=== PATIENT | female | born 1970 | race Caucasian/White ===

== ENCOUNTER 2020-08-16 10:09 | Outpatient (CLI) | payer OTHER, SELFPAY ==
--- NOTE | ~2020-08-16 | MM_ITS ---
EXAMINATION: MM screening anil BI w sofia HISTORY: Screening TECHNIQUE: Craniocaudal and mediolateral oblique 3-D tomosynthesis images were obtained and synthetic 2-D images were generated. CAD analysis was submitted and interpreted. COMPARISON: 03/09/2013 BREAST PARENCHYMAL COMPOSITION: There are scattered areas of fibroglandular density. FINDINGS: There is no evidence of suspicious mass, calcification, or architectural distortion to sugg est malignancy in either breast. There has been no suspicious interval change. IMPRESSION: 1. No mammographic evidence of malignancy. 2. Recommend routine screening mammography in one year. BI-RADS Category 1: Negative Reviewed, dictated and finalized at location A.
== END 2020-08-16 10:10 | disposition home or self-care (01) ==
LOC: ANHIMG 10:15
PROVIDERS: PCP Family Medicine Adolescent Medicine; Visit Provider Advanced Practice Midwife
DX: Z12.31 Encounter for screening mammogram for malignant neoplasm of breast (principal)
CPT/HCPCS: 77063; 77067

== ENCOUNTER 2022-03-03 11:21 | Emergency (ER) | payer OTHER, SELFPAY ==
[2022-03-03 11:28] VITALS: BP 152/72; PULSE 82; RESP 18; TEMP 36.6; O2SAT 100
--- NOTE | 2022-03-03 11:31 | ED.WOUNDLAC ---
HPI - Wound/Laceration General Chief Complaint: Wound/Laceration Stated Complaint: Structures Removal Time Seen by Provider: 03/03/22 11:31 Source: patient, RN notes reviewed and old records reviewed Mode of arrival: ambulatory Limitations: no limitations History of Present Illness HPI narrative: 51-year-old female presents to the [facility] for suture removal. Patient brought discharge papers from [facility] ER. Patient reports she had a syncopal episode, 8 sutures placed. 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, reports she was not able to get in for several weeks Related Data Home Medications Medication Instructions Recorded Confirmed No Home Medications 03/03/22 03/03/22 Allergies Allergy/AdvReac Type Severity Reaction Status Date / Time No Known Allergies Allergy Unknown Verified 03/03/22 11:25 Review of Systems Review of Systems: All systems reviewed & are unremarkable except as noted in HPI and below Constitutional: Constitutional: Reports no additional constitutional complaints Eyes: Eyes: Reports no additional eye complaints ENT: Reports system reviewed and no additional complaints, except as documented Cardiovascular: Cardiovascular: Reports no additional cardiovascular complaints, Denies chest pain and Denies dyspnea Respiratory: Respiratory: Reports no additional respiratory complaints, Denies chest congestion, Denies cough and Denies dyspnea Gastrointestinal: Gastrointestinal: Reports no additional gastrointestinal complaints, Denies abdominal pain, Denies nausea and Denies vomiting Musculoskeletal: Musculoskeletal: Reports no additional musculoskeletal complaints Integumentary/Breasts: Skin/Breast: Reports as per HPI Neurologic: Reports system reviewed and no additional complaints, except as documented Psychiatric: Psychiatric: Reports no additional psychiatric complaints Allergic/Immunologic: Allergic/Immunologic: Reports no additional allergic/immunologic complaints [facility] Family History Family History Father Family history of chronic obstructive pulmonary disease Malignant neoplasm of prostate Other Diabetes mellitus Social History Social History Smoking status: Never smoker Alcohol intake: current Comments At the time of my signature, I reviewed and agree with the nursing past medical, surgical, social, and family history. There is no relevant family history pertinent to the patient complaint. Exam Const: General: cooperative, healthy appearing, comfortable, no acute distress, well developed, alert and well nourished Nutritional Appearance: well nourished Orientation/consciousness: patient oriented x3 Limitations: no limitations HENMT: Head: normal to inspection Ears: hearing grossly normal bilaterally and external ears normal Face/Nose/Sinus: Normal external nose present, Normal nares present, Normal nasal mucous membranes and turbinates present and normal facial exam Face and sinus: normal facial exam Mouth: Yes Normal oral and palatal mucosa present, Yes lip normal and Yes moist mucous membranes Eyes: General: appearance normal, both eyes and all related structures Alignment and Position: alignment normal Periorbital: periorbital findings normal Conjunctivae: conjunctivae normal Pupils: Equal, round and reactive pupils present EOM: EOMs intact bilaterally Neck: Neck: normal visual inspection, full ROM, no lymphadenopathy and no meningeal signs Chest: Chest palpation & inspection: normal inspection of the chest Resp: Effort & Inspection: normal respiratory effort and able to speak in complete sentences Cardio: Rate: regular rate Rhythm: regular rhythm Back/Spine/Pelvis:
== END 2022-03-03 11:58 | disposition home or self-care (01) ==
PROVIDERS: Emergency Provider Nurse Practitioner; PCP Family Medicine Adolescent Medicine
DX: Z48.02 Encounter for removal of sutures (principal)
CPT/HCPCS: 99211; G0463

== ENCOUNTER 2022-06-16 10:53 | Day surgery (SDC) | payer OTHER, SELFPAY ==
[2022-05-20 08:03] VITALS: BMI 35.3
[2022-05-29 09:33] VITALS: BMI 35.4
--- NOTE | 2022-06-15 11:22 | PM.HPGS ---
History of Present Illness History of Present Illness Consent: Risks, benefits, and alternatives have been discussed and questions answered. Patient agrees to proceed with procedure. Chief complaint: Neoplasm Screening Narrative: Tricia Woo is a 51 year old female referred for colon cancer screening Review of Systems Review of Systems: All systems reviewed & are unremarkable except as noted in HPI and below PMFSH Family History Family History Father Family history of chronic obstructive pulmonary disease Malignant neoplasm of prostate Other Diabetes mellitus Social History Social History Smoking status: Never smoker Alcohol intake: never Substance use type: does not use Living arrangements: with family Spiritual care concerns: No Meds Home Medications and Allergies Home Medications Medication Instructions Recorded Confirmed Type multivitamin with minerals-folic 1 tablet PO DAILY 05/29/22 06/16/22 History acid 0.4 mg tablet Allergies Allergy/AdvReac Type Severity Reaction Status Date / Time No Known Allergies Allergy Unknown Verified 06/16/22 11:28 Exam Const: General: alert Orientation/consciousness: patient oriented x3 Resp: Auscultation: clear to auscultation bilaterally Cardio: Rhythm: regular rhythm GI: GI Palp: Yes Soft to palpation and No Tenderness to palpation present (GI) Neuro: General: patient oriented x3 Assessment and Plan Assessment and plan (1) Colon cancer screening: Code(s): Z12.11 - Encounter for screening for malignant neoplasm of colon Status: Acute Assessment and Plan: Colonoscopy with possible biopsy or polypectomy or cautery or injection of substances.
--- NOTE | 2022-06-16 11:15 | WPDANESEPPF ---
Anes - Initial Pre Proc Eval Procedure: Operation Date: 06/16/22 12:30 Proposed Procedures p Screening Colonoscopy - Javier Terrazas MD Date/Time: 06/16/22 11:15 Surgeon: Javier Terrazas MD Pre Op Diagnosis: Neoplasm Screening Patient Data Age: 51 Gender: F Height: 1.57 m Weight: 88 kg Allergies Allergy/AdvReac Type Severity Reaction Status Date / Time No Known Allergies Allergy Unknown Verified 03/03/22 11:25 Home Medications Medication Instructions Recorded Confirmed Type multivitamin with minerals-folic 1 tablet PO DAILY 05/29/22 05/29/22 History acid 0.4 mg tablet Patient hx anesthesia problems: none Family hx anesthesia problems: none Results Review: All pre-operative results and documents have been reviewed as part of the pre-operative evaluation. [facility] Family History Family History Father Family history of chronic obstructive pulmonary disease Malignant neoplasm of prostate Other Diabetes mellitus Social History Social History Smoking status: Never smoker Alcohol intake: never Substance use type: does not use Living arrangements: with family Spiritual care concerns: No Anes - Eval Final PreProcedure Day of Procedure 06/16/22 11:15 Patient weight: overweight Heart: regular rate and rhythm Lungs: clear to auscultation Airway: Mallampati scale class II Neurological: alert and oriented Last oral intake: >/= 8 hours ASA classification: II Emergent: no Anesthetic plan: proceed Anesthesia type and monitoring: general GIVS and standard monitoring Results Review: All pre-operative results and documents have been reviewed as part of the pre-operative evaluation. Informed Consent: The patient's anesthetic plan and its attendant risks and benefits were discussed with the patient/family/POA. Questions were solicited and answers provided to the satisfaction of the patient/family/POA.
[2022-06-16 11:29] VITALS: BP 139/83; PULSE 72; RESP 20; TEMP 36.9; O2SAT 100
[2022-06-16] MEDS: LACTATED RINGERS 1,000 ML 150 ML IV CONT (11:32)
[2022-06-16 12:27] VITALS: BP 102/66; PULSE 69; RESP 16; O2SAT 100
[2022-06-16 12:37] VITALS: BP 109/62; PULSE 62; RESP 16; O2SAT 100
[2022-06-16 12:47] VITALS: BP 108/63; PULSE 60; RESP 16; O2SAT 100
--- NOTE | 2022-06-16 12:47 | WPDANESPN ---
Anes - Prog Note Post-Op Date/Time: 06/16/22 12:47 Cardiovascular status: normal Respiratory status: normal Airway patency: baseline Mental status: baseline Post-Op hydration status: normal Vital Signs: Last Vital Signs Temp 36.9 C 06/16/22 11:29 Pulse 62 06/16/22 12:37 Resp 16 06/16/22 12:37 BP 109/62 06/16/22 12:37 Pulse Ox 100 06/16/22 12:37 O2 Del Method Room Air 06/16/22 12:37 Pain Score (VAS): 0 I/O: Intake & Output 06/15/22 06/16/22 06/16/22 23:59 07:59 15:59 Intake Total 500 Balance 500 Patient Feedback: Patient satisfied with anesthetic care.
== END 2022-06-16 12:57 | disposition home or self-care (01) ==
PROVIDERS: Visit Provider Internal Medicine Gastroenterology
PROC: 0DJD8ZZ Inspection of Lower Intestinal Tract, Via Natural or Artificial Opening Endoscopic (ICD-10-PCS; CPT 45378; principal; 2022-06-16 12:30)
DX: Z12.11 Encounter for screening for malignant neoplasm of colon (principal)
CPT/HCPCS: 45378

== ENCOUNTER 2023-12-10 09:00 | Outpatient (RCR) | payer OTHER, SELFPAY ==
--- NOTE | 2023-10-30 10:44 | OPREHPOC ---
Outpatient Therapy Plan of Care This is a Multidisciplinary Plan of Care that may contain components documented by all disciplines (PT, OT, and ST.) PT Problem 1 PT Problem #1 Knowledge Deficit PT Goal 1 Goal / Goal Update 1. Patient will perform independent HEP 2. Patient will verbalize urge suppression strategies Target Visit 3 PT Problem 2 PT Problem #2 Impaired Strength PT Goal 1 Goal / Goal Update 1. Improve pelvic floor strength to 4/5 to reduce incontinence 2. Improve pelvic floor endurance to 10 seconds to reduce incontinence 3. Improve core strengh to able to contract abdominals and hold with march Target Visit 5 PT Problem 3 PT Problem #3 Impaired Functional ADLs PT Goal 1 Goal / Goal Update 1. Patient will report no incontinence in the last month 2. Patient will void no more than 8 times a day and report no feelings of urgency Target Visit 5
--- NOTE | 2023-10-30 10:44 | PTOPEVAL1 ---
Assessment and note entered by Saniya Sanchez DPT Evaluation Information Assessment Status Evaluation ICD-10 Condition Codes (PT) Weakness R53.1,Stress incontinence N39.3 Subjective Information Pt reports urinary incontinence and has been using 1 light pad daily for at least several years but has recently had to increase to 2 pads a day. Also reports she has gained weight over the last few years and reports a drooping sensation. Voids less than 10 times a day and 0 at night. Incontinence 4 days out of 7. Will occur with a big cough or sneeze, sometimes laughing. Also will occur with jumping. Notices it after getting out of the shower. Can hold urge variable amounts of time depending on what she is doing, up to 30 minutes. Does report a sense of urgency. Denies pain with urination. BM 2-3 times a day, denies pain or incontinence. Denies history of pelvic pain. Pt has been 2 times, 2 vaginal deliveries and minor tearing and stitches with both. 2 LEEPs and colpo. Patient goal: strengthen pelvic floor and core Drinks approximately 20 ounces of coffee a day. No soda, some alcohol over the weekend. Water about 20 ounces a day and 16 ounces of tea a day. Will notice more urinary frequency after coffee and tea . Eats lunch and dinner, mid morning and afternoon snack. Does not cut out any major food groups. Return to MD is not scheduled currently. Reported Pain Level Pain Score 0: Self Report Assessment PT Clinical Summary The patient is presenting to skilled therapy with a several year history of worsening stress incontinence. She presents with decreased pelvic floor strength and endurance as well as decreased core strength which are contributing to her incontinence multiple times a week. She will benefit from therapy to address these impairments in order to eliminate incontinence and improve function. Plan of Care Interventions Manual Therapy,Neuro Re-education,Patient/ Caregiver Education,Therapeutic Activities, Therapeutic Exercise PT Services Indicated Yes Treatment Frequency and 1 time a week for 5 visits Duration These treatments will address the objective and functional deficits as d
--- NOTE | 2023-12-10 09:30 | OPREHPOC ---
Outpatient Therapy Plan of Care This is a Multidisciplinary Plan of Care that may contain components documented by all disciplines (PT, OT, and ST.) PT Problem 1 PT Problem #1 Knowledge Deficit PT Goal 1 Goal / Goal Update 1. Patient will perform independent HEP 2. Patient will verbalize urge suppression strategies Target Visit 3 Progress Met PT Problem 2 PT Problem #2 Impaired Strength PT Goal 1 Goal / Goal Update 1. Improve pelvic floor strength to 4/5 to reduce incontinence 2. Improve pelvic floor endurance to 10 seconds to reduce incontinence 3. Improve core strength to able to contract abdominals and hold with april update 12/09 1. 3/5 2. no change 3. can contract Target Visit 5 Progress Partially Met PT Problem 3 PT Problem #3 Impaired Functional ADLs PT Goal 1 Goal / Goal Update 1. Patient will report no incontinence in the last month 2. Patient will void no more than 8 times a day and report no feelings of urgency update 12/10/23 1. 3 days out of last 7 2. 7 voids a day, some urgency Target Visit 5 Progress Partially Met
--- NOTE | 2023-12-10 09:30 | PTOPDC ---
Assessment and note entered by Saniya Sanchez DPT Evaluation Information Assessment Status Discharge ICD-10 Condition Codes (PT) Weakness R53.1,Stress incontinence N39.3 Subjective Information Pt reports progress in therapy and is able to determine triggers regarding caffeine. Using 1 pad a day and voiding 7 times a day, 0 at night. Incontinence 3 times out of the last 7 days. Still getting incontinence while getting out of the shower but is a smaller volume. Can hold urge 30 minutes. Some drooping sensation still. Feels confident continuing HEP independently at this time. Reported Pain Level Pain Score 0: Self Report Assessment PT Clinical Summary The patient has made good progress in therapy. She reports decreased frequency and volume of incontinence. She also demonstrates improved core, hip, and pelvic floor strength. Due to her progress and patient request, plan for discharge this visit. She has been educated to continue independent HEP and follow up with MD and/or PT as needed. Plan of Care PT Services Indicated No
== END 2023-12-10 11:51 | disposition home or self-care (01) ==
LOC: ANHPT 09:00
PROVIDERS: Visit Provider Nurse Practitioner
DX: N39.3 Stress incontinence (female) (male) (principal)
CPT/HCPCS: 97110; 97112; 97161; 97530

== ENCOUNTER 2024-05-06 17:36 | Emergency (ER) | payer OTHER, SELFPAY ==
[2024-05-06 17:50] VITALS: BP 149/74; PULSE 62; RESP 16; TEMP 36.3; O2SAT 99
--- NOTE | 2024-05-06 17:55 | ED.SKABFB ---
HPI - Skin/Abscess/Foreign Bdy General Chief complaint: Skin/Abscess/Foreign Body Stated complaint: right/left arm rash Time Seen by Provider: 05/06/24 17:37 Source: patient Mode of arrival: ambulatory Limitations: no limitations History of Present Illness HPI narrative: Tricia is a 53-year-old female patient presenting to the clinic today with complaints a itchy burning rash on bilateral arms. She reports she 1st developed this rash on April 24, 2024. States she was cutting out some blinds and may have gotten is some poison sal. States that the rash has continuously gotten worse and now has spread. Also reporting redness and swelling to the right forearm with tenderness to palpation. States it has been oozing some clearish yellow drainage. No known fevers or body aches. Related Data Home Medications ?Medication ?Instructions ?Recorded ?Confirmed ?Last Taken ?Type multivitamin with minerals-folic 1 tablet PO DAILY 05/29/22 05/06/24 Unknown History acid 0.4 mg tablet Allergies Allergy/AdvReac Type Severity Reaction Status Date / Time No Known Allergies Allergy Unknown Verified 05/06/24 17:40 Review of Systems Review of Systems: Pertinent positives per HPI. Patient denies any fever, chills, headache, visual changes, dizziness, cough, shortness of breath, chest pain, palpitations, nausea, vomiting, diarrhea, constipation, abdominal pain, or any urinary issues. [facility] Family History Family History Father Family history of chronic obstructive pulmonary disease Malignant neoplasm of prostate Other Diabetes mellitus Social History Social History Smoking status: Never smoker Alcohol intake: never Substance use type: does not use Living arrangements: with family Spiritual care concerns: No Comments At the time of my signature, I reviewed and agree with the nursing past medical, surgical, social, and family history. There is no relevant family history pertinent to the patient complaint. Exam Narrative: General: Well-developed, well nourished, in no apparent distress Head: Normocephalic, atraumatic. Cardio: Regular rate and rhythm, s1 and s2 normal, no murmur appreciated. Resp: Clear to auscultation bilaterally, no rhonchi, rales, wheezing or rubs. Integumentary: Kinsman, warm, and dry, red raised itchy rash to bilateral forearms, rash to right forearm is swollen, tender to palpation with localized erythema. Patient reports that they itch and burn. Course Course Emergency Course: Portions of this record may have been created with voice recognition software. Level of Care: Express Care Visit Vital Signs Vital signs: Vital Signs Temperature 36.3 C L 05/06/24 17:50 Pulse Rate 62 05/06/24 17:50 Respiratory Rate 16 05/06/24 17:50 Blood Pressure 149/74 H 05/06/24 17:50 Pulse Oximetry 99 05/06/24 17:50 Oxygen Delivery Room Air 05/06/24 17:50 Temperature 36.3 C L 05/06/24 17:50 Pulse Rate 62 05/06/24 17:50 Respiratory Rate 16 05/06/24 17:50 Blood Pressure 149/74 H 05/06/24 17:50 Pulse Oximetry 99 05/06/24 17:50 Oxygen Delivery Room Air 05/06/24 17:50 Vital signs reviewed MDM - Skin/Abscess/Foreign Bdy MDM Narrative Medical decision making narrative: At the time of visit patient is resting comfortably on the exam table. Patient appears to be nontoxic. Plan: I suspect patient has poison sal but possibly a secondary infection to the right forearm due to scratching the rash. Prescription for doxycycline, prednisone, and triamcinolone cream was sent to the pharmacy. Supportive measures were discussed with the patient and they voiced understanding discharge instructions and agrees to treatment plan. Return precautions reviewed Differential Diagnosis Differential diagnosis: Likely abscess of skin or subcutaneous tissue, viral exanthem, dermatophytosis, urticaria, herpes zoster, allergic reaction to drug, cellulitis, eczema, insect bites, impetigo and contact dermatitis Discharge Plan Discharge Clinical Impression: Contact dermatitis Qualifiers: Contact dermatitis type: allergic Contact dermatitis trigger: non-food plants Qualified Code(s): L23.7 - Allergic contact dermatitis due to plants, except food Patient Disposition: Home, Self-Care Condition: Stable Instructions: Antibiotic Form, Dermatitis (ED) Additional Instructions: Apply triamcinolone cream as directed Take doxycycline as prescribed Take prednisone as directed Avoid hot showers Avoid scratching as this can cause a secondary infection May take benadryl 25-50mg every 6 hours as needed for itching. Follow up with your PCP in 3-5 days if symptoms persist or sooner if they worsen Go to the Emergency Room if symptoms worsen- fever, rash spreading with treatment, shortness of breath, tongue swelling, drooling, or chest pain Patient Language: Spanish Prescriptions: New triamcinolone acetonide 0.1 % cream 1 applic topical BID 7 Days Qty: 30 0RF prednisone 10 mg tablet 10 mg PO DAILY Qty: 30 0RF Rx Instructions: 60mg po daily on day 1, 40mg po daily on days 2-4, 30mg po daily on days 5-6, 20mg po daily on days 7-8, 10mg po daily on days 9-10 doxycycline monohydrate 100 mg capsule 100 mg PO BID 10 Days Qty: 20 0RF No Action multivit with min-folic acid 0.4 mg Tablet 1 tablet PO DAILY Follow-up/Referrals: PHYSICIAN NOT ON STAFF,NONSTAFF [Primary Care Provider] - Time of Disposition: 18:00 Quality NIHSS Nursing Documentation ED NIHSS nursing documentation: reviewed/agree
== END 2024-05-06 18:01 | disposition home or self-care (01) ==
PROVIDERS: Emergency Provider Nurse Practitioner Family
DX: L23.7 Allergic contact dermatitis due to plants, except food (principal)
CPT/HCPCS: 99213; G0463